=== PATIENT | male | born 1980 | race Caucasian/White ===

== ENCOUNTER 2025-04-29 03:32 | Emergency (ER) | payer MEDICAID, SELFPAY ==
[2025-04-29 03:38] VITALS: BP 113/83; PULSE 98; RESP 17; TEMP 36.6; O2SAT 98; BMI 25.1
--- NOTE | 2025-04-29 03:54 | W.ED.SKABFB ---
HPI - Skin/Abscess/Foreign Bdy General: Chief complaint: Wound/Laceration Stated complaint: Righ Hand Finger Cut Time Seen by Provider: 04/29/25 03:50 History of Present Illness: 44-year-old man who presents emergency room with a finger laceration. This happened earlier in the evening he says. Probably about 8 hours ago. Bleeding is controlled Related Data Previous Rx's ?Medication ?Instructions ?Recorded mupirocin 2 % topical ointment 1 applic topical TID #22 grams 08/29/24 sulfamethoxazole 800 1 tab PO BID 10 days #20 tabs 08/29/24 mg-trimethoprim 160 mg tablet (Bactrim DS) cephalexin 500 mg capsule 500 mg PO BID 7 days #14 caps 04/29/25 Allergies Allergy/AdvReac Type Severity Reaction Status Date / Time No Known Allergies Allergy Unverified 08/29/24 13:21 Review of Systems Narrative: Constitutional symptoms: Negative except as documented in HPI. Skin symptoms: Negative except as documented in HPI. Eye symptoms: Negative except as documented in HPI. ENMT symptoms: Negative except as documented in HPI. Respiratory symptoms: Negative except as documented in HPI. Cardiovascular symptoms: Negative except as documented in HPI. Gastrointestinal symptoms: Negative except as documented in HPI. Genitourinary symptoms: Negative except as documented in HPI. Musculoskeletal symptoms: Negative except as documented in HPI. Neurologic symptoms: Negative except as documented in HPI. Psychiatric symptoms: Negative except as documented in HPI. Endocrine symptoms: Negative except as documented in HPI. PFS ED PFSH: Social History Smoking and tobacco/nicotine status: unknown if used tobacco/nicotine Physical Exam Narrative: EXAM NARRATIVE: General: Alert, no acute distress. Skin: warm and dry. Right middle finger with a laceration running down the finger of probably about 3 cm. Bleeding is controlled. Neurovascular intact. Head: Normocephalic Neck: Trachea midline Eye: Extraocular movements are intact. Ears, nose, mouth and throat: Oral mucosa moist Respiratory: Respirations are non-labored Musculoskeletal: Normal ROM Gastrointestinal: Abdomen does not appear distended Neurological: Alert and oriented, No focal neurological deficit observed. Psychiatric: Cooperative, appropriate mood & affect. Course Vital Signs: Vital signs: Vital Signs Temperature 97.8 F 04/29/25 03:38 Pulse Rate 89 04/29/25 03:56 Respiratory Rate 17 04/29/25 03:38 Blood Pressure 113/83 04/29/25 03:56 Pulse Oximetry 98 04/29/25 03:56 Oxygen Delivery Me thod Room Air 04/29/25 03:56 MDM - Skin/Abscess/Foreign Bdy Medicial Decision Making I had prepared suturing materials and had brought in lidocaine to do a digital block, patient says he will not have any sort of needles in him. No numbing and no sutures. He adamantly refuses this. I discussed with him that he is at a higher risk for infection and it will take longer to heal and he states he does not care Wound was cleaned and dressed. Assessment and plan: Finger laceration - Discharged home - Discussed plan with patient. Answered any questions. - Evaluation and treatment of this problem were appropriate in the emergency setting. No radiology studies performed this visit Discharge Plan Discharge Patient Disposition: Home Clinical Impression: Laceration Condition: Stable Prescriptions: New cephalexin 500 mg capsule 500 mg PO BID 7 Days Qty: 14 0RF No Action sulfamethoxazole-trimethoprim [Bactrim DS] 800-160 mg tablet 1 tab PO BID 10 Days Qty: 20 0RF mupirocin 2 % ointment 1 applic topical TID Qty: 22 0RF Discharge Orders: Discharge ED (Routine); Ordered 04/29/25 Ordered By: Any Qureshi Discharge Diet: Usual diet Discharge Activity: Increase activity as tolerated Patient Instructions: Laceration Without Closure (ED), Opioid Safety, Pain Management, Patient Portal & Araseli Instructions Activity Restrictions/Additional Instructions: Thank you for choosing [facility] for your healthcare needs today. You have been screened and evaluated and felt safe for discharge. Health conditions do change or evolve sometimes and as such it is important that you follow up with your Primary Doctor to be re checked, 3-5 days is a general good time frame for follow up. You are always welcome to return to the ED for re assessment if your symptoms are worsening or you have new concerns Print Language: Bahraini Coding Level of Care Code ED Meal Attendant for Anjali Ledezma
[2025-04-29 03:56] VITALS: BP 113/83; PULSE 89; O2SAT 98
[2025-04-29 04:05] VITALS: BP 107/81; PULSE 92; O2SAT 97
--- OUTSIDE RECORDS SUMMARY | 2025-04-29 18:36 | XMS_ITS | Clinical Summary ---
Author Organization [facility] Address [address] [place] [address] Phone Care Team Providers Care Gear Room Keeper Name Role Phone Unavailable Primary Care Provider Unavailabl e Medications antipyrine-milka ocaine (AURODEX) 5.4-1.4 % OT Drop Administer 6 Drops in right ear every 3 hours as needed. 1 Bottle 0 1 Active Social History Tobacco Use Types Packs/Day Years Used Date Smoking Tobacco: Every Day Alcohol Use Standard Drinks/Week Comments No 0 (1 standard drink = 0.6 oz pur e alcohol) Sex and Gender Information Value Date Recorded Sex Assigned at Not on file Legal Sex Male 12:40 PM [employer] Gender Identity Not on file Sexual Orientation Not on file Last Filed Vital Signs Vital Sign Reading Time Taken Comments Blood Pressure 123/75 11/05/2010 11:45 PM [employer]UBING TE[employer] Pulse 94 11/05/2010 11:45 PM [employer]UBING TE[employer] Temperature 36.8 C (98.2 F) 11/05/2010 11:45 PM [employer]ING TE[employer] Respiratory Rate 16 11/05/2010 11:45 PM [employer]UBING TE[employer] Oxygen Saturation 96% 11/05/2010 11:45 PM [employer]UBING TE[employer] Inhaled Oxygen Concentration - - Weight 95.3 kg (210 lb) 11/05/2010 11:45 PM [employer]ING TE[employer] Height 182.9 cm (6') 11/05/2010 11:45 PM [employer]UBING TE[employer] Body Mass Index 28.48 11/05/2010 11:45 PM [employer]UBING TE[employer] Plan of Treatment Health Maintenance Due Date Last Done Comments HPV VACCINES (1 - Male 3-dose series) 12/10/1994 DTAP/TDAP/TD VACCINES (1 - Tdap) 12/10/1998 HEPATITIS B VACCINES (1 of 3 - 19+ 3-dose series) 11/16 COLORECTAL SCREENING 12/10/2024 Colorectal Cancer Screening 12/10/2024 FIT-DNA Q 3 years 12/10/2024 FIT/FOBT Q 1 year 12/10/2024 Flex Sig/CT Colonography Q 5 years 12/10/2024 INFLUENZA VACCINE (#1) 2025
== END 2025-04-29 04:35 | disposition home or self-care (01) ==
PROVIDERS: Emergency Provider Emergency Medicine
DX: S61.212A Laceration without foreign body of right middle finger without damage to nail, initial encounter (principal); X58.XXXA Exposure to other specified factors, initial encounter
CPT/HCPCS: 99283